=== PATIENT | male | born 1990 | race Caucasian/White ===

== ENCOUNTER 2018-10-12 11:56 | Emergency (ER) | payer OTHER ==
[2018-10-12 12:34] VITALS: BMI 31.1
--- NOTE | 2018-10-12 12:39 | PDOC ---
History of Present Illness - General Chief Complaint: Pain Stated Complaint: NAUSEA, BACK PAIN, LIGHTHEADED Time Seen by Provider: 10/12/18 12:39 - History of Present Illness Initial Comments: 10/12/18 13:35 The patient is a 28 year old male with no significant PMH who presents for evaluation of nausea, back pain, and frequent urination. The patient reports a 2 day history of crampy right sided back pain with associated nausea and frequent urination prompting his presentation to the ED for further evaluation. He notes that his symptoms have progressively worsened and does not note any relieving factors. He denies similar symptoms in the past and otherwise denies fevers, chills, SOB, chest pain, vomiting, abdominal pain, or changes with bowel movements. Past History - Past Medical History Allergies/Adverse Reactions: Allergies Allergy/AdvReac Type Severity Reaction Status Date / Time No Known Allergies Allergy Verified 10/12/18 12:31 Home Medications: Ambulatory Orders Methocarbamol [Robaxin -] 500 mg PO BID #14 tablet 10/12/18 COPD: No - Suicide/Smoking/Psychosocial Hx Smoking History: Never smoked Review of Systems - Review of Systems Comments:: 10/12/18 13:39 Constitutional: No fevers, chills, fatigue, malaise HEENT: No Rhinorrhea, nasal congestion, visual changes Cardiovascular: Lightheadedness. No chest pain, syncope, palpitations, Respiratory: No Cough, SOB, Hemoptysis, Gastrointestinal: Nausea. No Abdominal pain, Vomiting, Constipation, Diarrhea, Melena Genitourinary: Flank pain. Increased urinary frequency. No Dysuria, Urgency, Hesitancy, Hematuria, Musculoskeletal: No Myalgia, arthralgia Skin: No rashes, itching, bruising, pallor Neurologic: No Headache, Dizziness, Numbness, Weakness, or Tingling Psychiatric: No Hallucinations. No SI or HI *Physical Exam - Vital Signs Last Vital Signs Temp Pulse Resp BP Pulse Ox 98.5 F 78 18 125/81 100 10/12/18 12:31 18 12:31 10/12/18 12:31 10/12/18 12:31 10/12/18 12:31 - Physical Exam Comments: 10/12/18 13:40 General Appearance: Nourished. No Apparent Distress HEENT: No Pharyngeal Erythema, Tonsillar Exudate, Tonsillar Erythema Neck: No Cervical Lymphadenopathy Respiratory/Chest: Lungs Clear, Normal Breath Sounds. No Crackles, Rales, Rhonchi, Wheezing Cardiovascular: Regular Rhythm, Regular Rate. No Murmur, Gallops, Rubs Gastrointestinal/Abdominal: Normal Bowel Sounds, Soft. No Guarding, Rebound, Tenderness Musculoskeletal: Bilateral CVA Tenderness R>L Extremity: Normal Capillary Refill Integumentary: Normal Color, Dry, Warm Neurologic: Fully Oriented, Alert, Normal Mood/Affect, Normal Response, ED Treatment Course - LABORATORY CBC & Chemistry Diagram: 10/12/18 13:55 10/12/18 13:55 Medical Decision Making - Medical Decision Making 10/12/18 13:40 The patient is a 28 year old male with no significant PMH who presents for evaluation of nausea, back pain, and frequent urination. Differential includes but is not limited to: UTI, Pyelonephritis, Kidney stone, Musculoskeletal, Infectious, Metabolic Derangement. Given the patient's history and physical exam, we will obtain a cbc, cmp, ua, urine culture to evaluate further. We will treat with iv fluids, zofran, toradol and continue to monitor and reassess while here in the ED. 10/12/18 17:31 CBC, cmp, Ua are unremarkable. CT abdomen/pelvis was unremarkable as read by our radiologist. The patient reports some improvement in his symptoms. We are comfortable discharging the patient home with primary care provider follow up. We discussed the results, plan, and return precautions with the patient who voiced understanding and is agreeable with the plan. *DC/Admit/Observation/Transfer Diagnosis at time of Disposition: Back pain Qualifiers: Back pain location: back pain in unspecified location Chronicity: unspecified Back pain laterality: unspecified Qualified Code(s): M54.9 - Dorsalgia, unspecified - Discharge Dispostion Disposition: HOME Condition at time of disposition: Stable Decision to Admit order: No - Prescriptions Prescriptions: Methocarbamol [Robaxin -] 500 mg PO BID #14 tablet - Referrals - Patient Instructions Printed Discharge Instructions: DI for Flank Pain Additional Instructions: Please return to the ER if you experience concerning or worsening symptoms including worsening difficulty breathing, weakness, or chest pain, fevers, abdominal pain, vomiting. Your lab results were normal here in the ER. Your CT scan was normal as well. We have sent a prescription to your pharmacy for Robaxin that you may take twice a day as needed for pain. Please call to schedule a follow up appointment with your primary care provider within 2-3 days to discuss your ER visit and further management of your symptoms. - Post Discharge Activity
[2018-10-12] MEDS ORDERED: KETOROLAC TROMETHAMINE 30 MG/1 ML VIAL IVPUSH ONE (13:22)
[2018-10-12] MEDS ORDERED: ONDANSETRON 4 MG/2 ML VIAL IVPUSH ONE (13:22)
[2018-10-12] MEDS ORDERED: SODIUM CHLORIDE 1,000 ML IV STA (13:22)
[2018-10-12] MEDS ORDERED: KETOROLAC TROMETHAMINE 30 MG/1 ML VIAL ONE (13:39)
[2018-10-12] MEDS ORDERED: ONDANSETRON 4 MG/2 ML VIAL ONE (13:39)
[2018-10-12 14:06] LABS: URINE APPEARANCE CLEAR; URINE BILIRUBIN NEGATIVE (<2.0 mg/dL); URINE COLOR LTYELLOW; URINE GLUCOSE (UA) NEGATIVE (NEGATIVE); URINE KETONE NEGATIVE (NEGATIVE); URINE LEUK ESTERASE NEGATIVE (NEGATIVE); URINE NITRITE NEGATIVE (NEGATIVE); URINE PROTEIN NEGATIVE (NEGATIVE); URINE UROBILINOGEN NEGATIVE mg/dL (0.2-1.0)
[2018-10-12 14:27] LABS: BASO % 0.3 % (0-2.0); EOS % 1.8 % (0-4.5); HEMOGLOBIN 14.8 GM/dL (11.7-16.9); LYMPH % 25.7 % (8-40); MCH 30.4 pg (25.7-33.7); MCHC 34.4 g/dl (32.0-35.9); MEAN CELL VOLUME 88.5 fl (80-96); MEAN PLT VOLUME 8.3 fl (7.5-11.1); MONO % 4.9 % (3.8-10.2); NEUT % 67.3 % (42.8-82.8); PLATELET COUNT 257 K/MM3 (134-434); RBC 4.85 M/mm3 (4.00-5.60); RDW 13.1 % (11.9-15.9); WHITE BLOOD COUNT 6.2 K/mm3 (4.0-10.0)
--- NOTE | 2018-10-12 14:37 | PDOC ---
Attending Attestation - HPI HPI: 10/12/18 15:19 The patient is a 28 year old female, with no significant past medical history of , who presents to the emergency department with 2 days of right sided back pain , increase in urinary frequency and associated nausea with new onset of left sided back pain today. He denies experiencing this in the past. The patient denies chest pain, shortness of breath, headache and dizziness. The patient denies fever, chills, nausea, vomit, diarrhea and constipation. The patient denies dysuria, urgency and hematuria. Allergies: NKDA - Physicial Exam PE: 10/12/18 15:19 Vitals: Triage vital signs reviewed General Appearance: No acute distress, well nourished, well developed Head: Atraumatic Eyes: Pupils equal reactive round, extraocular movement intact Neck: Supple; No nuchal rigidity Chest Wall: Nontender Cardiac: Regular rate and rhythm, no murmurs, no rubs, no gallops Lungs: Clear to auscultation bilateral, good air movement bilaterally Abdomen: Soft, nondistended, normal bowel sounds, nontender to palpation Extremities: Full range of motion to all extremities, no cyanosis, clubbing, or edema Skin: Warm and dry, no rashes or lesions, no rash, no petechiae Musculoskeletal: (+) bilateral CVA (L>R) Neuro: AOX3; Cranial Nerves 2-12 grossly intact, Strength intact to all extremities, Sensation intact to all extremities, gait normal Psych: Normal mood, normal affect - Medical Decision Making 10/12/18 15:19 Documentation prepared by Vicki Gabriel, acting as medical or surgical instrument maker for Richardson Barnard MD <Vicki Gabriel - Last Filed: 10/12/18 15:19> - Resident Resident Name: Dante Mota - ED Attending Attestation I have performed the following: I have examined & evaluated the patient, The case was reviewed & discussed with the resident, I agree w/resident's findings & plan, Exceptions are as noted - Medical Decision Making Right-sided flank discomfort no fever no white count no relief with initial dose of Toradol we'll CT Dr. Gonzales to follow-up CAT scan results and reassess. <Richardson Barnard - Last Filed: 10/12/18 16:27>
[2018-10-12 14:43] LABS: ALBUMIN 4.1 g/dl (3.4-5.0); ALK PHOS 128 U/L (45-117); ANION GAP 4 MMOL/L (8-16); BILIRUBIN,TOTAL 0.4 mg/dL (0.2-1); BLOOD UREA NITROGEN 9 mg/dL (7-18); CALCIUM 9.2 mg/dL (8.5-10.1); CHLORIDE 105 mmol/L (98-107); CO2 29 mmol/L (21-32); CREATININE 0.8 mg/dL (0.55-1.3); GLUCOSE,RANDOM 90 mg/dL (74-106); POTASSIUM 4.5 mmol/L (3.5-5.1); SGOT/AST 17 U/L (15-37); SGPT/ALT 34 U/L (13-61); SODIUM 138 mmol/L (136-145); TOT PROT 7.8 g/dl (6.4-8.2)
[2018-10-12] MEDS ORDERED: METHOCARBAMOL 500 MG TABLET PO ONE (15:31)
[2018-10-12] MEDS ORDERED: ACETAMINOPHEN 1000 MG/100 ML VIAL (NON FORMULARY) IVPB ONE (15:31)
[2018-10-12] MEDS ORDERED: ACETAMINOPHEN INJECTION 100 ML IVPB ONE (16:44)
[2018-10-12] MEDS ORDERED: METHOCARBAMOL 500 MG TABLET ONE (16:44)
[2018-10-12 18:16] VITALS: BP 130/78; PULSE 66; TEMP 97.8
== END 2018-10-12 18:36 | disposition home or self-care (01) ==
LOC: JER 11:56
PROC: 3E033GC Introduction of Other Therapeutic Substance into Peripheral Vein, Percutaneous Approach (ICD-10-PCS; principal; 2018-10-12)
PROC: 3E033NZ Introduction of Analgesics, Hypnotics, Sedatives into Peripheral Vein, Percutaneous Approach (ICD-10-PCS; 2018-10-12)
PROC: 3E0333Z Introduction of Anti-inflammatory into Peripheral Vein, Percutaneous Approach (ICD-10-PCS; 2018-10-12)
DX: M54.9 Dorsalgia, unspecified (principal)
CPT/HCPCS: 36415; 74177-TC; 80053; 81003; 85025; 87086; 99282-25; J0131; J7030